=== PATIENT | male | born 2000 | race Caucasian/White ===

== ENCOUNTER 2020-03-08 16:07 | Emergency (ER) | payer OTHER ==
[~2020-03-08] VITALS: Ht 188 cm; Wt 78.0 kg
[2020-03-08 16:20] VITALS: BP 117/72
== END 2020-03-08 16:48 | disposition home or self-care (01) ==
LOC: ER 16:08
DX: S00.81XA Abrasion of other part of head, initial encounter (principal); W19.XXXA Unspecified fall, initial encounter; Y93.89 Activity, other specified; Y92.89 Other specified places as the place of occurrence of the external cause; Y99.8 Other external cause status
CPT/HCPCS: 99284

== ENCOUNTER 2021-03-15 15:51 | Emergency (ER) | payer BC ==
[~2021-03-15] VITALS: Ht 185.4 cm; Wt 86.4 kg
[2021-03-15 15:59] VITALS: BP 130/78
[2021-03-15 16:39] LABS: BASOPHILS % (AUTO) 0.5 % (0-1); EOSINOPHILS # (AUTO) 0.1 X10'3 (0-0.9); EOSINOPHILS % (AUTO) 1.9 % (0-6); HEMATOCRIT 45.2 % (42.0-52.0); HEMOGLOBIN 15.5 g/dl (14.0-17.9); LYMPHOCYTES # (AUTO) 1.2 X10'3 (1.1-4.8); LYMPHOCYTES % (AUTO) 19.2 % (21-51); MEAN CORPUSCULAR HGB CONC 34.3 g/dL (33.0-36.5); MEAN CORPUSCULAR VOLUME 93.2 FL (78-98); MEAN PLATELET VOLUME 9.2 FL (7.4-10.4); MONOCYTES # (AUTO) 0.6 X10'3 (0-0.9); MONOCYTES % (AUTO) 9.1 % (2-12); NEUTROPHILS # (AUTO) 4.3 X10'3 (1.8-7.7); NEUTROPHILS % (AUTO) 69.3 % (42-75); PLATELET COUNT 207 X10'3 (140-440); RED BLOOD COUNT 4.85 X10'6 (4.70-6.10); WHITE BLOOD COUNT 6.2 X10'3 (4.5-11.0)
[2021-03-15 16:51] LABS: PARTIAL THROMBOPLASTIN TIME 26 SECONDS (22-32)
[2021-03-15 16:52] LABS: ALANINE AMINOTRANSFERASE 29 U/L (12-78); ALBUMIN 4.3 G/DL (3.4-5.0); ALBUMIN/GLOBULIN RATIO 1.2 (1.1-1.5); ALKALINE PHOSPHATASE 65 IU/L (46-116); ANION GAP 11 (8-16); ASPARTATE AMINO TRANSFERASE 18 U/L (10-37); BILIRUBIN,TOTAL 0.5 MG/DL (0.1-1.0); BLOOD UREA NITROGEN 17 MG/DL (7-18); BUN/CREATININE RATIO 13.2 (5.4-32.0); CALCIUM 9.1 MG/DL (8.5-10.1); CHLORIDE 105 MMOL/L (99-107); CREATININE 1.29 MG/DL (0.60-1.10); D-DIMER < 0.19 MG/L FEU (0-0.50); GLUCOSE 101 MG/DL (70-104); POTASSIUM 4.1 MMOL/L (3.5-5.1); SODIUM 146 MMOL/L (135-145); TOTAL CARBON DIOXIDE 30.1 MMOL/L (24-32); eGFR 70 ML/MIN
[2021-03-15 16:54] LABS: UA COLLECTION TYPE CLN CATCH MIDSTREAM
[2021-03-15 16:55] LABS: COLOR,URINE YELLOW (Yellow); GLUCOSE, URINE NEGATIVE (Neg); KETONES,URINE NEGATIVE (Neg); LEUKOCYTE ESTERASE ,URINE NEGATIVE (Neg); NITRITES, URINE NEGATIVE (Neg); OCCULT BLOOD,URINE NEGATIVE (Neg); PH,URINE 7.5 (4.8-8.0); PROTEIN,URINE NEGATIVE (Neg); UROBILINOGEN,URINE 0.2 E.U/dL (0.2-1.0)
[2021-03-15 16:56] LABS: MAGNESIUM 2.1 MG/DL (1.5-2.4)
[2021-03-15 17:01] LABS: C-REACTIVE PROTEIN < 0.05 MG/DL (0.0-0.5)
[2021-03-15 17:02] LABS: SQUAMOUS EPITHELIAL CELL,UR FEW /LPF (FEW)
[2021-03-15 17:03] LABS: BACTERIA,URINE FEW /HPF (Neg); RBC,URINE 0-2 /HPF (0-2); WBC,URINE 0-4 /HPF (0-4)
[2021-03-15 17:04] LABS: CLARITY,URINE SLIGHTLY CLOUDY (Clear)
== END 2021-03-15 17:57 | disposition home or self-care (01) ==
LOC: ER 15:51
DX: R07.9 Chest pain, unspecified (principal); I49.9 Cardiac arrhythmia, unspecified
CPT/HCPCS: 36415; 71045; 80053; 81001; 83735; 84145; 84484; 85025; 85379; 85610; 85730; 86140; 93005; 99285